=== PATIENT | male | born 1985 | race Asian ===

== ENCOUNTER 2020-10-17 08:43 | Inpatient (IN) | payer OTHER ==
[2020-10-17] MEDS ORDERED: MAGNESIUM CITRATE 300 ML BOTTLE PO PRN (09:50)
[2020-10-17] MEDS ORDERED: MENTHOL/PHENOL 1 EACH UD MM PRN (09:50)
[2020-10-17] MEDS ORDERED: IBUPROFEN 400 MG TABLET (FP) PO PRN (09:50)
[2020-10-17] MEDS ORDERED: MAGNESIUM HYDROX 2400MG/30ML ORAL SUSPENSION 30 ML CUP PO PRN (09:50)
[2020-10-17] MEDS ORDERED: METHADONE HCL 10 MG TABLET (FOR DETOX USE ONLY) PO ONE (09:50)
[2020-10-17] MEDS ORDERED: ACETAMINOPHEN 325 MG TABLET (FP) PO PRN ×2 (09:50)
[2020-10-17] MEDS ORDERED: MAG HYDROX/AL HYDROX/SIMETH 30 ML UNIT-DOSE CUP PO PRN (09:50)
[2020-10-17 10:26] VITALS: BMI 26.9
[2020-10-17] MEDS: PRENATAL VITAMINS W/ FOLIC ACID TABLET (FP) PO SCH (12:09)
[2020-10-17] MEDS: hydrOXYzine PAMOATE 25 MG CAPSULE (FP) PO SCH ×4 (12:09→22:15)
[2020-10-17] MEDS: NICOTINE 21 MG/24 HOURS TOPICAL PATCH TD SCH (12:12)
[2020-10-17] MEDS: NICOTINE POLACRILEX 2 MG GUM BUC PRN ×2 (14:16→22:19)
[2020-10-17] MEDS: diazePAM 5 MG TABLET PO PRN ×2 (15:57→22:18)
[2020-10-17] MEDS: THIAMINE HCL 100 MG TABLET (FP) PO SCH (22:15)
[2020-10-17] MEDS: MELATONIN 5 MG TABLETS PO SCH (22:16)
[2020-10-17] MEDS: cloNIDine HCL 0.1 MG TABLET PO PRN (22:18)
[2020-10-18] MEDS: diazePAM 5 MG TABLET PO PRN ×4 (05:20→22:20)
[2020-10-18] MEDS: hydrOXYzine PAMOATE 25 MG CAPSULE (FP) PO SCH ×5 (05:20→22:20)
[2020-10-18] MEDS ORDERED: METHADONE HCL 10 MG TABLET (FOR DETOX USE ONLY) ONE (09:03)
[2020-10-18] MEDS ORDERED: METHADONE HCL 5 MG TABLET (FOR DETOX USE ONLY) ONE (09:03)
[2020-10-18] MEDS ORDERED: METHADONE (DETOX) 20 MG, METHADONE (DETOX) 5 MG PO ONE (10:00)
[2020-10-18] MEDS: NICOTINE 21 MG/24 HOURS TOPICAL PATCH TD SCH (10:29)
[2020-10-18] MEDS: PRENATAL VITAMINS W/ FOLIC ACID TABLET (FP) PO SCH (10:29)
[2020-10-18 10:35] LABS: HEMOGLOBIN 12.4 GM/dL (11.7-16.9); MCH 30.2 pg (25.7-33.7); MCHC 33.4 g/dl (32.0-35.9); MEAN CELL VOLUME 90.5 fl (80-96); MEAN PLT VOLUME 8.4 fl (7.5-11.1); PLATELET COUNT 171 K/MM3 (134-434); RBC 4.09 M/mm3 (4.00-5.60)
[2020-10-18 10:47] LABS: POTASSIUM 3.6 mmol/L (3.5-5.1)
[2020-10-18 10:48] LABS: CALCIUM 8.6 mg/dL (8.5-10.1)
[2020-10-18 10:49] LABS: ALBUMIN 3.5 g/dl (3.4-5.0); BLOOD UREA NITROGEN 8.3 mg/dL (7-18)
[2020-10-18 10:52] LABS: CREATININE 0.7 mg/dL (0.55-1.3)
[2020-10-18 10:54] LABS: BILIRUBIN,TOTAL 0.2 mg/dL (0.2-1); TOT PROT 6.4 g/dl (6.4-8.2)
[2020-10-18] MEDS: METHOCARBAMOL 500 MG TABLET PO PRN ×2 (13:31→19:43)
[2020-10-18 14:54] LABS: URINE APPEARANCE CLEAR; URINE BILIRUBIN NEGATIVE (NEGATIVE); URINE COLOR YELLOW; URINE GLUCOSE (UA) NEGATIVE (NEGATIVE); URINE KETONE TRACE (NEGATIVE); URINE LEUK ESTERASE NEGATIVE (NEGATIVE); URINE NITRITE NEGATIVE (NEGATIVE); URINE PROTEIN NEGATIVE (NEGATIVE)
[2020-10-18] MEDS: NICOTINE POLACRILEX 2 MG GUM BUC PRN (18:37)
[2020-10-18] MEDS: cloNIDine HCL 0.1 MG TABLET PO PRN (19:41)
[2020-10-18] MEDS: THIAMINE HCL 100 MG TABLET (FP) PO SCH (22:20)
[2020-10-18] MEDS: BISMUTH SUBSALICYLATE 524 MG/30 ML UD PO PRN (22:21)
[2020-10-18] MEDS: MELATONIN 5 MG TABLETS PO SCH (22:22)
[2020-10-19] MEDS: hydrOXYzine PAMOATE 25 MG CAPSULE (FP) PO SCH ×5 (05:44→22:07)
[2020-10-19] MEDS: diazePAM 5 MG TABLET PO PRN ×4 (05:45→22:10)
[2020-10-19] MEDS ORDERED: METHADONE HCL 10 MG TABLET (FOR DETOX USE ONLY) PO ONE (10:00)
[2020-10-19] MEDS: NICOTINE 21 MG/24 HOURS TOPICAL PATCH TD SCH (10:19)
[2020-10-19] MEDS: PRENATAL VITAMINS W/ FOLIC ACID TABLET (FP) PO SCH (10:20)
[2020-10-19] MEDS ORDERED: FLU VACCINE (FLULAVAL) PF 60 MCG/0.5 ML SYRINGE 2020-2021 IM ONE (12:00)
[2020-10-19] MEDS: METHOCARBAMOL 500 MG TABLET PO PRN ×2 (12:13→19:20)
[2020-10-19] MEDS: BISMUTH SUBSALICYLATE 524 MG/30 ML UD PO PRN (20:58)
[2020-10-19] MEDS: MELATONIN 5 MG TABLETS PO SCH (22:07)
[2020-10-19] MEDS: THIAMINE HCL 100 MG TABLET (FP) PO SCH (22:07)
[2020-10-19] MEDS: cloNIDine HCL 0.1 MG TABLET PO PRN (22:07)
[2020-10-20] MEDS: hydrOXYzine PAMOATE 25 MG CAPSULE (FP) PO SCH ×5 (05:42→22:05)
[2020-10-20] MEDS: diazePAM 5 MG TABLET PO PRN ×2 (05:42→14:40)
[2020-10-20] MEDS ORDERED: hydrOXYzine PAMOATE 25 MG CAPSULE (FP) PO PRN (08:31)
[2020-10-20] MEDS ORDERED: METHADONE HCL 5 MG TABLET (FOR DETOX USE ONLY) ONE (09:23)
[2020-10-20] MEDS ORDERED: METHADONE HCL 10 MG TABLET (FOR DETOX USE ONLY) ONE (09:23)
[2020-10-20] MEDS ORDERED: METHADONE (DETOX) 10 MG, METHADONE (DETOX) 5 MG PO ONE (10:00)
[2020-10-20] MEDS: PRENATAL VITAMINS W/ FOLIC ACID TABLET (FP) PO SCH (10:20)
[2020-10-20] MEDS: METHOCARBAMOL 500 MG TABLET PO PRN ×3 (10:20→23:40)
[2020-10-20] MEDS: ONDANSETRON *ODT* 4 MG TABLET SL PRN (10:20)
[2020-10-20] MEDS: NICOTINE 21 MG/24 HOURS TOPICAL PATCH TD SCH (10:48)
[2020-10-20] MEDS: cloNIDine HCL 0.1 MG TABLET PO PRN ×2 (10:50→22:05)
[2020-10-20] MEDS: CEPHALEXIN MONOHYDRATE 500 MG CAPSULE (UD) PO SCH ×2 (12:10→17:52)
[2020-10-20] MEDS: BISMUTH SUBSALICYLATE 524 MG/30 ML UD PO PRN ×2 (17:04→18:31)
[2020-10-20] MEDS: LOPERAMIDE HCL 2 MG CAPSULE PO PRN (22:03)
[2020-10-20] MEDS: MELATONIN 5 MG TABLETS PO SCH (22:05)
[2020-10-20] MEDS: THIAMINE HCL 100 MG TABLET (FP) PO SCH (22:05)
[2020-10-21] MEDS: CEPHALEXIN MONOHYDRATE 500 MG CAPSULE (UD) PO SCH ×3 (00:15→11:05)
[2020-10-21] MEDS: hydrOXYzine PAMOATE 25 MG CAPSULE (FP) PO SCH ×2 (05:27→10:32)
[2020-10-21] MEDS: LOPERAMIDE HCL 2 MG CAPSULE PO PRN (05:29)
[2020-10-21] MEDS ORDERED: diazePAM 5 MG TABLET PO ONE (06:00)
[2020-10-21] MEDS: BISMUTH SUBSALICYLATE 524 MG/30 ML UD PO PRN (08:15)
[2020-10-21] MEDS: ONDANSETRON *ODT* 4 MG TABLET SL PRN (08:44)
[2020-10-21 09:20] VITALS: TEMP 96.8
[2020-10-21] MEDS ORDERED: TRIMETHOBENZAMIDE HCL 200MG/2ML INJ IM ONE (09:59)
[2020-10-21] MEDS ORDERED: METHADONE HCL 10 MG TABLET (FOR DETOX USE ONLY) PO ONE (10:00)
[2020-10-21] MEDS: PRENATAL VITAMINS W/ FOLIC ACID TABLET (FP) PO SCH (10:30)
[2020-10-21] MEDS: NICOTINE 21 MG/24 HOURS TOPICAL PATCH TD SCH (10:30)
[2020-10-21] MEDS: cloNIDine HCL 0.1 MG TABLET PO PRN (10:30)
[2020-10-21] MEDS ORDERED: cloNIDine HCL 0.1 MG TABLET PO ONE (11:21)
[2020-10-21 11:29] VITALS: PULSE 80
[2020-10-21 11:30] VITALS: BP 152/98
[2020-10-22] MEDS ORDERED: METHADONE HCL 5 MG TABLET (FOR DETOX USE ONLY) PO ONE (06:00)
== END 2020-10-21 11:32 | disposition home or self-care (01) | DRG 773 ==
LOC: YASAS 08:43 → Y6N 10:29
PROVIDERS: ADMIT Allergy & Immunology; ATTEND Allergy & Immunology
PROC: HZ2ZZZZ Detoxification Services for Substance Abuse Treatment (ICD-10-PCS; principal; 2020-10-17)
DX: F11.23 Opioid dependence with withdrawal (principal); F13.230 Sedative, hypnotic or anxiolytic dependence with withdrawal, uncomplicated; F12.20 Cannabis dependence, uncomplicated; F17.210 Nicotine dependence, cigarettes, uncomplicated; F41.9 Anxiety disorder, unspecified; F19.24 Other psychoactive substance dependence with psychoactive substance-induced mood disorder; F19.282 Other psychoactive substance dependence with psychoactive substance-induced sleep disorder; I10 Essential (primary) hypertension; G47.00 Insomnia, unspecified; Z91.011 Allergy to milk products; Z56.0 Unemployment, unspecified
CPT/HCPCS: 36415; 80053; 81003; 82947; 85027; 86780; 93005; 93010; C9803; G0008; J0735; Q0162; Q2036; U0003